=== PATIENT | male | born 1985 | race African-American/Black ===

== ENCOUNTER 2016-11-27 09:20 | Emergency (ER) | payer SELFPAY ==
[~2016-11-27] VITALS: Ht 177.8 cm; Wt 81.6 kg
[2016-11-27 09:45] VITALS: BP 143/81
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
[2016-11-27] MEDS ORDERED: DIPHTH,PERTUSS(ACELL),TET TOX 0.5 ML DISP.SYRIN. VAX IM ONE (10:15)
[2016-11-27] MEDS ORDERED: LIDOCAINE 1% / SOD BICARB 8.4% 20 ML VIAL. IJ ONE (10:15)
[2016-11-27] MEDS ORDERED: IBUPROFEN 800 MG TABLET. PO ONE (10:15)
--- NOTE | 2016-11-27 10:39 | RAD ---
Left hand, 3 views, 11/27/2016: History: Puncture wound There is a fracture of the terminal tuft of the distal phalanx of the middle finger with very little displacement at the fracture site. The DIP joint is uninvolved. No other acute or dislocation is identified. There is deformity of the shaft of the fifth metacarpal compatible with an old healed fracture. No radiopaque foreign body is evident in the soft tissues. IMPRESSION: Acute fracture of the terminal tuft of the distal phalanx of the middle finger.
[2016-11-27] MEDS ORDERED: SULF1TAB24 PO (11:18)
== END 2016-11-27 11:41 | disposition home or self-care (01) ==
LOC: ER 09:20
DX: S62.633B Displaced fracture of distal phalanx of left middle finger, initial encounter for open fracture (principal); W26.8XXA Contact with other sharp object(s), not elsewhere classified, initial encounter; Y93.89 Activity, other specified; Y92.89 Other specified places as the place of occurrence of the external cause; Y99.8 Other external cause status
CPT/HCPCS: 11750; 29130; 64450; 73130; 90471; 90715; 99284-25

== ENCOUNTER 2017-07-01 17:00 | Emergency (ER) | payer OTHER ==
[~2017-07-01] VITALS: Ht 172.7 cm; Wt 68.0 kg
[~2017-07-01 17:00] MED LIST: SULF1TAB24 PO
[2017-07-01 17:34] VITALS: BP 121/79
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
[2017-07-01] MEDS ORDERED: TETRACAINE 0.5% OPHTH SOLUTION 4ML BOTTLE. OD ONE (18:00)
[2017-07-01] MEDS ORDERED: FLUORESCEIN OPHTH TEST STRIP. OD ONE (18:00)
[2017-07-01] MEDS ORDERED: ERYT1OIN6 OP (18:20)
== END 2017-07-01 18:41 | disposition home or self-care (01) ==
LOC: ER 17:00
DX: H57.8 Other specified disorders of eye and adnexa (principal)
CPT/HCPCS: 99283

== ENCOUNTER 2017-08-01 16:45 | Emergency (ER) | payer OTHER ==
[~2017-08-01] VITALS: Ht 172.7 cm; Wt 68.0 kg
[~2017-08-01 16:45] MED LIST changes: +ERYT1OIN6 OP
[2017-08-01 16:53] VITALS: BP 115/70
--- NOTE | 2017-08-01 16:59 | PHYS DOC ---
Past Medical History Past Medical History: No Pertinent History Past Surgical History: No Surgical History Alcohol Use: Occasionally Drug Use: Marijuana Adult General Chief Complaint Chief Complaint: LOWER EXT PAIN [facility] HPI Patient is a 32 year old male presents to the emergency department with complaints of right calf pain for 2 days. Was sudden onset. He states his been persistent. No known injury. He has not had any recent periods of immobilizations or surgeries. He has no clotting dyscrasia, no history of DVT. He states that he does use tobacco and marijuana. He works as a wastewater treatment operator Review of Systems Review of Systems Constitutional: Denies fever or chills [] Eyes: Denies change in visual acuity, redness, or eye pain [] HENT: Denies nasal congestion or sore throat [] Respiratory: Denies cough or shortness of breath [] Cardiovascular: No additional information not addressed in HPI [] GI: Denies abdominal pain, nausea, vomiting, bloody stools or diarrhea [] : Denies dysuria or hematuria [] Musculoskeletal: Right calf pain Integument: Denies rash or skin lesions [] Neurologic: Denies headache, focal weakness or sensory changes [] Endocrine: Denies polyuria or polydipsia [] Allergies Allergies Allergies Coded Allergies Type Severity Reaction Last Updated Verified No Known Drug Allergies 06/21/16 No Physical Exam Physical Exam Constitutional: Well developed, well nourished, no acute distress, non-toxic appearance. [] HENT: Normocephalic, atraumatic, bilateral external ears normal, oropharynx moist, no oral exudates, nose normal. [] Eyes: PERRLA, EOMI, conjunctiva normal, no discharge. [] Neck: Normal range of motion, no tenderness, supple, no stridor. [] Cardiovascular:Heart rate regular rhythm, no murmur [] Lungs & Thorax: Bilateral breath sounds clear to auscultation [] Abdomen: Bowel sounds normal, soft, no tenderness, no masses, no pulsatile masses. [] Skin: Warm, dry, no erythema, no rash. [] Back: No tenderness, no CVA tenderness. [] Extremities: Mild tenderness over the mid calf, negative Homans. There is no swelling, no erythema. Full range of motion of the right lower extremity without difficulty. Ask intact distally. Neurologic: Alert and oriented X 3, normal motor function, normal sensory function, no focal deficits noted. [] Psychologic: Affect normal, judgement normal, mood normal. [] Current Patient Data Vital Signs Vital Signs Date Time Temp Pulse Resp B/P (MAP) Pulse Ox O2 Delivery O2 Flow Rate FiO2 08/01/17 16:53 97.9 73 18 98 Room Air 97.9 EKG EKG [] Radiology/Procedures Radiology/Procedures [][facility] [address] [place] [address] IMAGING REPORT Signed PATIENT: BRANDIE CARRILLO ACCOUNT: [id number] : 1985 LOCATION: ER AGE: 32 SEX: M EXAM STATUS: REG ER ORD. PHYSICIAN: BE BARROSO APRN REASON: pain PROCEDURE: VENOUS LOWER EXTREMITY RIGHT Right lower extremity venous duplex Doppler ultrasound HISTORY: Right leg pain. TECHNIQUE: Grayscale and duplex Doppler sonography were utilized. FINDINGS: No evidence of deep venous thrombosis by grayscale sonography with compressibility, patent color Doppler blood flow, respiratory variability and augmentation of blood flow of the right common femoral vein, profunda femoral vein, superficial femoral vein and popliteal vein. Patent color Doppler blood flow of the posterior tibial and peroneal veins in the calf. IMPRESSION: Negative right leg for deep venous thrombosis. Electronically signed by: Malik Block MD (08/01/2017 5:29 PM) [facility] DICTATED and SIGNED BY: MALIK BLOCK MD DATE: 08/01/17 1452 CC: NO PCP; BE BARROSO APRN ~ Course & Med Decision Making Course & Med Decision Making Pertinent Labs and Imaging studies reviewed. (See chart for details) [] Dragon Disclaimer Dragon Disclaimer This electronic medical record was generated, in whole or in part, using a voice recognition dictation system. Departure Departure Impression: Primary Impression: Muscle strain Disposition: 01 HOME, SELF-CARE Condition: STABLE Referrals: NO PCP (PCP) [facility] Patient Instructions: Muscle Strain Scripts Naproxen (NAPROSYN) 500 Mg Tablet 500 MG PO BID, #20 TAB Prov: BE BARROSO APRN 08/01/17 BE BARROSO APRN Aug 01, 2017 16:59
--- NOTE | 2017-08-01 17:32 | RAD ---
Right lower extremity venous duplex Doppler ultrasound HISTORY: Right leg pain. TECHNIQUE: Grayscale and duplex Doppler sonography were utilized. FINDINGS: No evidence of deep venous thrombosis by grayscale sonography with compressibility, patent color Doppler blood flow, respiratory variability and augmentation of blood flow of the right common femoral vein, profunda femoral vein, superficial femoral vein and popliteal vein. Patent color Doppler blood flow of the posterior tibial and peroneal veins in the calf. IMPRESSION: Negative right leg for deep venous thrombosis. Electronically signed by: Malik Block MD (08/01/2017 5:29 PM) [id number]
[2017-08-01] MEDS ORDERED: NAPR500T PO (17:44)
== END 2017-08-01 17:50 | disposition home or self-care (01) ==
LOC: ER 16:45
DX: S86.811A Strain of other muscle(s) and tendon(s) at lower leg level, right leg, initial encounter (principal); F12.10 Cannabis abuse, uncomplicated; F17.200 Nicotine dependence, unspecified, uncomplicated; Y93.89 Activity, other specified; X58.XXXA Exposure to other specified factors, initial encounter; Y92.89 Other specified places as the place of occurrence of the external cause; Y99.8 Other external cause status
CPT/HCPCS: 93971; 99284-25

== ENCOUNTER 2018-01-14 06:38 | Emergency (ER) | payer SELFPAY, OTHER ==
[2018-01-14 07:39] LABS: ADD MAN DIFF? YES; BASO % 0 % (0-3); EOS % 0 % (0-3); HEMATOCRIT 37.6 % (39.0-53.0); HEMOGLOBIN 12.4 g/dL (13.0-17.5); LYMPH # 0.5 x10^3/uL (1.0-4.8); LYMPH % 10 % (24-48); MEAN CORPUSCULAR HEMOGLOBIN 23 pg (25-35); MEAN CORPUSCULAR HGB CONC 33 g/dL (31-37); MEAN CORPUSCULAR VOLUME 69 fL (79-100); MONO % 19 % (0-9); NEUT # 3.9 x10^3uL (1.8-7.7); NEUT % 71 % (31-73); PLATELET COUNT 227 x10^3/uL (140-400); RED BLOOD COUNT 5.45 x10^6/uL (4.30-5.70); RED CELL DISTRIBUTION WIDTH 15.6 % (11.5-14.5); WHITE BLOOD COUNT 5.5 x10^3/uL (4.0-11.0)
[2018-01-14] MEDS: IV NORMAL SALINE 1000ML BAG 1,000 ML IV (07:42)
[2018-01-14] MEDS: ACETAMINOPHEN 325 MG TABLET. PO (07:45)
[2018-01-14] MEDS: MORPHINE SULFATE 4 MG/ML DISP.SYRIN. IV (07:46)
[2018-01-14] MEDS: ONDANSETRON PF 4 MG/2 ML VIAL. IV (07:47)
[2018-01-14 07:48] LABS: ANION GAP 15 (6-14); BLOOD UREA NITROGEN 15 mg/dL (8-26); BUN/CREATININE RATIO 12 (6-20); CALCIUM 8.8 mg/dL (8.5-10.1); CARBON DIOXIDE 23 mmol/L (21-32); CHLORIDE 101 mmol/L (98-107); CREATININE 1.3 mg/dL (0.7-1.3); GFR 76.9; GLUCOSE 148 mg/dL (70-99); POTASSIUM 3.8 mmol/L (3.5-5.1); SODIUM 139 mmol/L (136-145)
[2018-01-14 07:53] LABS: ALBUMIN/GLOBULIN RATIO 1.1 (1.0-1.7); ALK PHOS 69 U/L (46-116); ALT (SGPT) 16 U/L (16-63); AST (SGOT) 20 U/L (15-37); TOTAL BILIRUBIN 0.2 mg/dL (0.2-1.0); TOTAL PROTEIN 7.5 g/dL (6.4-8.2)
[2018-01-14 08:38] LABS: INFLUENZA A PATIENT NEGATIVE (NEGATIVE); INFLUENZA B PATIENT POSITIVE (NEGATIVE); OBC FLU VALID
[2018-01-14 10:52] LABS: % BANDS 8 % (0-9); % LYMPHS 12 % (24-48); % MONOS 19 % (0-10); % SEGS 61 % (35-66)
[2018-01-14 10:53] LABS: TOXIC VACUOLATION SLIGHT
[2018-01-14 10:54] LABS: HYPOCHROMIA SLIGHT; PLT ESTIMATE ADEQUATE (ADEQUATE)
[2018-01-14 10:55] LABS: TARGET CELLS FEW
== END 2018-01-14 09:09 | disposition home or self-care (01) ==
LOC: ER 06:38
DX: J10.1 Influenza due to other identified influenza virus with other respiratory manifestations (principal); F12.10 Cannabis abuse, uncomplicated
CPT/HCPCS: 36415; 71046; 80053; 85007; 85025; 87804; 87804-59; 96361; 96374; 96375; 99285-25; J2270; J2405; J7030

== ENCOUNTER 2018-01-22 20:45 | Emergency (ER) | payer SELFPAY | END 2018-01-22 21:56 | disposition home or self-care (01) | LOC: ER 20:45 | DX: M54.2 Cervicalgia (principal); F12.10 Cannabis abuse, uncomplicated | CPT/HCPCS: 99282 ==

== ENCOUNTER 2018-03-21 21:01 | Emergency (ER) | payer SELFPAY ==
[2018-03-21] MEDS: LIDOCAINE 1% PF 2 ML VIAL. INJ (22:00)
[2018-03-21] MEDS: LIDOCAINE 1% PF 5 ML VIAL. INJ (22:30)
[2018-03-21] MEDS ORDERED: LIDOCAINE 1% Multi-Dose 20 ML VIAL. INJ (22:30)
== END 2018-03-21 22:47 | disposition home or self-care (01) ==
LOC: ER 21:01
DX: K61.1 Rectal abscess (principal); L02.31 Cutaneous abscess of buttock; F12.10 Cannabis abuse, uncomplicated
CPT/HCPCS: 46040; 99283